=== PATIENT | female | born 1970 | race Caucasian/White ===

== ENCOUNTER 2016-07-20 09:00 | Inpatient (IN) | payer BC ==
--- NOTE | ~2016-07-20 | DS ---
Unit #: [id number] #: [id number] Patient: ILYA TAI [id number] [address] [place], [place] [address] [id number] I MR#: [id number] NAME: ILYA TAI ROOM: 218 Age: 45 Sex: F Admission Date: 07/20/2016 : 1970 Discharge Date: 07/24/2016 Attending Physician: Jerry Mendiola M.D. Primary Care Physician: Jerry Mendiola M.D. DISCHARGE SUMMARY PRINCIPAL DISCHARGE DIAGNOSES 1. Profound iron deficiency anemia. 2. Normal endoscopy, upper and lower. 3. Hypoglycemia. 4. Status post gastric bypass. 5. Migraine headaches. 6. Major depressive disorder. 7. Generalized anxiety disorder. 8. Fibromyalgia syndrome. 9. Tobacco use. 10. History of ulcerative colitis. PROCEDURES PERFORMED 1. Transfusion of two units of packed red blood cells 07/20/2016. 2. EGD 07/23/2016. 3. Colonoscopy 07/23/2016. [facility]ULT[facility]. REASON FOR HOSPITALIZATION The patient is a 45-year-old white female with a history of migraine headaches, major depressive disorder, generalized anxiety disorder, ulcerative colitis, fibromyalgia syndrome, tobacco use, gastric bypass, seen for routine followup in the office on 07/19/2016. Routine labs were sent. Her hemoglobin was found to be 6.4 with a low MCV and MCH and she was directly admitted for transfusion and further evaluation. HOSPITAL COURSE The patient was admitted to medical surgical bed. Bilateral SCDs for DVT prophylaxis started. Repeat CBC sent with iron studies. Her B12 had been checked in the office and was normal. Stool for occult blood was ordered. LSA was asked to see her for endoscopy. She became somewhat lethargic on the night of admission. Ammonia level was checked. Drug screen was sent. She was found to be hypoglycemic and started on some IV fluids and resolved. Her blood sugar was normal thereafter. She received two units of packed red blood cells on the day of admission. Her hemoglobin on repeat here was 5.6. Iron studies were low. Folic acid was normal. Had difficulty prepping the patient for endoscopy, but eventually she was cleared and underwent upper and lower endoscopy on the that were completely normal. She was given IV iron while here. Stool for occult blood was negative times two. It appears that it is a malabsorption problem secondary to gastric bypass. Her last hemoglobin yesterday was 10.0 on 07/23/2016. Unit #: [id number] #: [id number] Patient: ILYA TAI DISCHARGE MEDICATIONS 1. She is being discharged home on ferrous gluconate 324 mg one p.o. b.i.d. q.p.c. with vitamin C 500 mg p.o. b.i.d. 2. She is to resume her home medications a. Fioricet 1 tablet t.i.d. p.r.n. headache. b. Lyrica 150 mg p.o. q.i.d. c. Topamax 100 mg b.i.d. Paxil 40 mg daily. d. Ativan 0.5 mg b.i.d. e. Potassium chloride 20 mEq b.i.d. FOLLOWUP She will follow up in the office in one week with a CBC. Dictated by... Jerry Mendiola M.D. JOHNATHAN/douglas TD: 07/24/2016 08:12 JOB #: [id number] DISCHARGE SUMMARY Page 1 of 1 X Jerry Mendiola MD X DISCHARGE SUMMARY
--- NOTE | ~2016-07-20 | CO ---
Unit #: [id number] #: [id number] Patient: ILYA TAI [id number] [address] [place], [place] [address] [id number] I MR#: [id number] NAME: ILYA TAI ROOM: 218 Age: 45 Sex: F Admission Date: 07/20/2016 : 1970 Attending Physician: Jerry Mendiola M.D. Primary Care Physician: Jerry Mendiola M.D. Consultation Date: 07/21/2016 CONSULTATION REPORT HISTORY OF PRESENT ILLNESS The patient is a 45-year-old white female with profound anemia, some mental status changes. She was brought in for transfusion. She feels better. We were asked to see her for upper and lower endoscopy. She has not seen any blood in her bowels. She has had no peritoneal signs or any evidence of an acute surgical abdomen. She has had a history of a gastric bypass, which certainly could account for possible anemia and she has also had a history of chronic ulcerative colitis; although, she says she has had no recent flare ups with any bouts of diarrhea, and again she has not seen any blood. One must rule out marginal ulceration, occult lesion in the colon versus colitis. This most likely is related to iron-deficiency anemia secondary to gastric bypass surgery. PLAN At this time, we would recommend both upper and lower endoscopy. Risks have been explained to the patient. She understands. Orders have been written. Dictated by... Lizeth Cortez/mell TD: 07/21/2016 06:30 JOB #: [id number] CONSULTATION REPORT Page 1 of 1 X Michael Agosto MD X CONSULTATION REPORT
--- NOTE | ~2016-07-20 | A ---
[facility] Nutrition Therapy DATE: 07/22/16 Patient: ILYA TAI Physician: ADRIÁN Address: [address] [place] [address] Room/Bed: [address] [place] [address], Zip: [place] [address] Admit Date: 07/20/16 Date of : 74 Height: 4 11 Weight: 112 [id number] NUTRITIONAL ASSESSMENT: REASON: 3 NUTRITION RISK PT RE: WEIGHT LOSS PT IS 45 Y.O. FEMALE ADMITTED FOR ANEMIA PMH: HTN, ANXIETY, DEPRESSION, ULCERATIVE COLITIS, FIBROMYALAGIA, CVA, HX OF GASTRIC BYPASS, CHOLY Anthropometrics: 4'11" (PER PT), WT: 112# (51 KG), BMI: 22.6, 114%IBW Labs: GLU: 67, CA+:7.9 Meds: ZOFRAN, PROTONIX, NACL, D5% I/O & Bowel function: 1860/1207, 3 BMs NOTED Skin Integrity: NO KNOWN SKIN ISSUES Estimated Nutrition Needs: INCREASED NUTRIENT NEEDS 2' CURRENT CONDITION, WEIGHT LOSS NOTED, DECREASED PO INTAKE AND APPETITE Assessment: CHART REVIEWED AND EVENTS NOTED. PT SEEN FOR NUTRITION RISK PT RE: WEIGHT LOSS. PT WAS UNDER HER COVERS WHEN SHE SPOKE TO RD. PT REPORTED FAIR PO INTAKE 2' DECREASED APPETITE PAST SEVERAL DAYS. PT C/O N/V/D PAST SEVERAL DAYS WELL. PT ADDS HER APPETITE "COMES AND GOES". PT REPORTS WEIGHT LOSS BUT UNABLE TO IDENTIFY AMOUNT AND TIME FRAME. PER [employer], PT WEIGHED ~135-145# BACK IN 2011. OF NOTE, PT CURRENTLY NPO 2' PROCEDURE (EGD & COLONOSCOPY). THIS RD ENCOURAGED SLOW GRADUAL PO INTAKE ONCE DIET ADVANCES, PT AGREED. RD ALSO LEFT WRITTEN GASTRIC SURGERY NUTRITION THERAPY DIET EDUCATION AT BEDSIDE. PT NOT APPROPRIATE FOR DIET EDUCATION AT THIS TIME. RD TO FOLLOW. Dx: INADEQUATE PROTEIN-ENERGY INTAKE R/T DECREASED APPETITE, CURRENT CONDITION AEB PT REPORT ABOVE. ?WEIGHT LOSS NOTED IN UNKNOWN AMOUNT OF TIME. Intervention: 1. NPO 2. WRITTEN DIET EDUCATION LEFT AT BEDSIDE Monitoring, Evaluation and Goals: 1. ORAL INTAKE; ADVANCE DIET AND TOLERATE W/NO C/O N/V/D (PO>50%) 2. WEIGHTS; PREVENT FURTHER WEIGHT LOSS 3. GI; PROMOTE REGULAR GI FUNCTION 4. LABS; WNL [facility] Nutrition Therapy DATE: 07/22/16 Patient: ILYA TAI Physician: ADRIÁN Address: [address] [place] [address] Room/Bed: [address] [place] [address], Zip: [place] [address] Admit Date: 07/20/16 Date of : [birth year] Height: 4 11 Weight: 112 [id number] MONITOR: -DIET ADVANCEMENT -PO INTAKE/APPETITE -WEIGHTS Recommendations: 1. ONCE MEDICALLY FEASIBLE, BEGIN WITH CLEARS AND ADVANCE DIET TOLERATED TO LOW FIBER + 6 SMALL MEALS 2. ORDER APPROPRIATE SUPPLEMENTS SUCH ENSURE SHAKES OR PUDDING OR ENSURE CLEAR BID FOR ADDITIONAL PROTEIN AND KCAL 3. ENCOURAGE SLOW GRADUAL PO INTAKE 4. CONSIDER ADDING MVI W/MINERAL DAILY TO PT'S CURRENT MEDICATION REGIMEN RD WILL F/U PER PROTOCOL PT IS MILD/MODERATELY COMPROMISED Respectfully, JORGE MOFFETT MS, RD, LD [employer] [facility] [place] [facility] cc: client file
--- NOTE | ~2016-07-20 | OR ---
Unit #: [id number] #: [id number] Patient: ILYA TAI [id number] [address] [place], [place] [address] [id number] I MR#: [id number] NAME: ILYA TAI ROOM: 218 Date of Procedure: 07/23/2016 Admission Date: 07/20/2016 Surgeon: Calvin Harper M.D. : 1970 Attending Physician: Jerry Mendiola M.D. Primary Care Physician: Jerry Mendiola M.D. OPERATIVE REPORT PRIMARY CARE PHYSICIAN Jerry Mendiola M.D. PREOPERATIVE DIAGNOSIS Iron-deficiency anemia. POSTOPERATIVE DIAGNOSIS Iron-deficiency anemia. PROCEDURES PERFORMED Esophagogastroduodenoscopy and colonoscopy. ANESTHESIA Monitored anesthesia. INDICATIONS FOR PROCEDURE Ms. Mueller is a 45-year-old female, who presented to the hospital with symptomatic iron deficiency anemia, but no evidence of any clinical blood loss. She has a history of gastric bypass in the remote past. DESCRIPTION OF PROCEDURE The patient was transported from her hospital room to the endoscopy suite and after appropriate monitoring and positioning, a bite block was placed and she was sedated by the nurse snack bar cook. The endoscope was passed through the oral cavity into the esophagus. Under direct vision, I passed through the esophagus, the GE junction was well demarcated. There was no esophagitis, hiatal hernia, or Goodson mucosa. I easily passed into the gastric remnant and it was very small. I easily passed through a widely patent anastomosis into the jejunum. No abnormalities on visualization of the upper GI tract were noted. The GE junction was at 30 cm and she had approximately a 5 cm gastric pouch. The esophagus and larynx were normal in retrograde visualization. After completion of the upper scope, the patient was repositioned. On rectal examination, there was no local anorectal pathology and digital exam was normal. Colonoscope was passed through the anal verge throughout the extent of the colon to the cecum, where the appendiceal orifice and ileocecal valve were photodocumented. On careful antegrade and retrograde visualization, no abnormalities were noted throughout the colon. The patient tolerated the procedure well and transported to recovery in stable condition. The patient will be readmitted to her hospital room, where her primary care physician will continue to replete her iron with IV iron sucrose. Unit #: [id number] #: [id number] Patient: ILYA TAI Dictated by... Lizeth Tao/mell TD: 07/23/2016 23:10 JOB #: [id number] OPERATIVE REPORT Page 1 of 1 X Calvin Harper MD PROCEDURE OPERATIVE NOTE
--- NOTE | ~2016-07-20 | HP ---
Unit #: [id number] #: [id number] Patient: ILYA TAI [id number] [address] [place], [place] [address] [id number] I MR#: [id number] NAME: ILYA TAI ROOM: 218 Age: 45 Sex: F Admission Date: 07/20/2016 : 1970 Attending Physician: Jerry Mendiola M.D. Primary Care Physician: Jerry Mendiola M.D. HISTORY AND PHYSICAL HISTORY OF PRESENT ILLNESS This is a 45-year-old, white female with history of hypertension, chronic insomnia, tobacco use, depression, anxiety disorder, ulcerative colitis fibromyalgia syndrome, previous gastric bypass and cholecystectomy. Presented to the office on 07/19/16 for routine followup. At that time, she had no particular complaints. Was here with her , which is unusual, who noted that she has been having some hallucinations at home off and on without any other associated symptoms. She had refills and routine labs sent. Her lab returned this morning before we had gotten the MRI of her brain, which was to be followed with an EEG if it was normal. In any case, her labs came back this morning showing a hemoglobin of 6.4 with a low MCV and MCH and an elevated RDW consistent with microcytic anemia and she is being admitted for transfusion and further evaluation. She has had a prior colonoscopy, but I do not have the report. She is a relatively new patient to the office. She sees Dr. Henry on an outpatient basis, but he does not admit or come to our hospital. In any case, she is being admitted for further evaluation and transfusion. ALLERGIES She has stated allergies to amoxicillin, sulfa drugs, Cipro, and Levaquin. MEDICATIONS Her meds prior to admission: 1. Trazodone 100 mg p.o. q.h.s. 2. Metoprolol 50 mg b.i.d. 3. Topamax 200 mg b.i.d. 4. Ativan 1 mg t.i.d. p.r.n. 5. Lyrica 150 mg 4 times daily. 6. Calcium citrate 600 mg b.i.d. 7. Cymbalta 60 mg daily. 8. Lomotil 1 q.i.d. p.r.n. 9. Fioricet with codeine 1 q.i.d. p.r.n. PAST SURGICAL HISTORY Gastric bypass in 2001, breast reduction in 2004, and cholecystectomy. PAST MEDICAL HISTORY Chronic migraine headaches, tobacco use, major depressive disorder, generalized anxiety disorder, fibromyalgia syndrome, and ulcerative colitis. SOCIAL HISTORY She is and smokes 1/2-1 pack of cigarettes daily. No alcohol or street drug use. Unit #: [id number] #: [id number] Patient: ILYA TAI FAMILY HISTORY Mother is alive with type 2 diabetes mellitus. Father is alive with coronary artery disease. She has no siblings. PHYSICAL EXAMINATION HEENT: Unremarkable, except for pale mucous membranes. VITAL SIGNS: Blood pressure 120/80 in the right arm, height 58 1/2 inches, weight 112 pounds, BMI 24, room air O2 sat 98%, pulse 118, and temperature 99.2. NECK: Supple without JVD, bruits, adenopathy, or thyromegaly. CHEST: Clear to auscultation. HEART: Regular and tachycardic without (1) gallop or murmur appreciated. ABDOMEN: Not examined yesterday, but will be as soon as she is in the hospital. EXTREMITIES: Showed no clubbing, cyanosis, or edema. GENITOURINARY: Deferred. RECTAL: Deferred. NEUROLOGIC: Grossly intact. DIAGNOSTIC STUDIES LABORATORY: As mentioned above, her white count is 7.3, hemoglobin 6.4, MCV 66, MCH 17.8, MCHC 26.8, RDW 22.2, and platelets 797,000. CMP was normal, except for creatinine was low at 0.55, chloride 107, calcium was 8.4, total protein 5.5, and albumin 3.4. Lipid profile normal. Hepatitis C antibody was negative. B12 was 245. IMPRESSION 1. Microcytic anemia, likely iron deficient. Whether it is an absorption problem from her prior gastric bypass or she has some intestinal bleeding remains to be seen. 2. Chronic migraine headaches. 3. Fibromyalgia syndrome. 4. Ulcerative colitis. 5. Generalized anxiety disorder. 6. Major depressive disorder. 7. 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 8. Tobacco use. PLAN Admit. Check iron studies and folic acid. Consult surgery for endoscopy. Transfusion 2 units. Recheck CBC. Further evaluation pending results of the above. Dictated by Lizeth Bautista/cooper TD: 07/20/2016 13:21 JOB #: [id number] Unit #: [id number] #: [id number] Patient: ILYA TAI HISTORY AND PHYSICAL Page 1 of 1 X Jerry Mendiola MD X HISTORY AND PHYSICAL
[~2016-07-20 09:00] MED LIST: AMITRYPTYLINE PO; ATIVAN0.5 M1 PO; B12 HEALTH1000 MCG/1 PO; BENTYL20 MG PO; CALCIUM + VITAM1 TAB PO; CALCIUM 500 +1 EAC2; CELEXA PO; DICYCLOMINE HCL20 MG PO; FIORICET1 TAB PO; FLAGYL PO; HYDROCODON-ACE1 EAC1 PO; KCL PO; LIBRAX CAPSULE1 CA1 PO; LIBRAX1 CAP 5/2. PO; LOPERAMIDE HCL2 M1 PO; LORTAB 10-5001 EACH PO; LYRICA25 MG PO; MAGNESIUM100 MG PO; PAXIL40 MG PO; PEPCID PO; POTASSIUM1 UDCAP.SA PO; QUESTRAN PACK4 G/PK1 PO; SOD BICARBONATE PO; TOPAMAX PO; TOPAMAX200 MG PO; TOPROL XL50 MG PO; TRAMADOL HCL50 M2 PO
[2016-07-20 16:33] LABS: BASOPHIL# 0.1 X10e3 (0-0.3); BASOPHIL% 2.3 % (0-2.5); EOSINOPHIL# 0.1 X10e3 (0-0.7); EOSINOPHIL% 1.5 % (0.0-7.0); LYMPHOCYTE# 2.2 X10e3 (1.0-3.5); LYMPHOCYTE% 46.6 % (17.0-45.0); MEAN CELL VOLUME 65.2 FL (83-96); MEAN CORPUSCULAR HEMOGLOBIN 18.1 PG (28-34); MEAN CORPUSCULAR HGB CONC 27.8 g/dL (30-36); MEAN PLATELET VOLUME 8.6 FL (6.5-11.5); MONOCYTE# 0.3 X10e3 (0-1.0); MONOCYTE% 6.2 % (3.0-12.0); NEUTROPHIL# 2.1 X10e3 (1.5-7.1); NEUTROPHIL% 43.4 % (40-75); PLATELET COUNT 482 X10e3 (140-420); RED BLOOD COUNT 3.07 X10e (3.90-5.30); RED CELL DISTRIBUTION WIDTH 22.2 % (11.0-15.5); WHITE BLOOD COUNT 4.8 X10e3 (4.0-10.5)
[2016-07-20 16:38] LABS: DIFF IND YES; HEMOGLOBIN 5.6 gm/dL (12.0-16.0)
[2016-07-20 16:54] LABS: IRON SERUM 5 ug/dL (28-170); TOTAL IRON BINDING CAPACITY 423 ug/dL (269-535); TRANSFERRIN 302 mg/dL (192-382); TRANSFERRIN SATURATION 1 % (20-50)
[2016-07-20 17:01] LABS: PLATELET ESTIMATE NORMAL (NORMAL)
[2016-07-20 17:02] LABS: POIKILOCYTOSIS MOD
[2016-07-20 17:03] LABS: TARGET CELLS SL
[2016-07-20 17:17] LABS: FOLATE (FOLIC ACID) 7.1 ng/mL (>5.8)
[2016-07-20 20:29] LABS: BUN/CREATININE RATIO 36.66; CALCIUM SERUM 7.9 mg/dL (8.4-10.2); CREATININE SERUM 0.6 mg/dL (0.6-1.4); GLOM FILT RATE Estimated 111.6 mL/min (>60); POTASSIUM 3.9 mmol/L (3.5-5.1)
[2016-07-21 05:04] LABS: BASOPHIL# 0.1 X10e3 (0-0.3); BASOPHIL% 1.6 % (0-2.5); EOSINOPHIL# 0.1 X10e3 (0-0.7); EOSINOPHIL% 1.7 % (0.0-7.0); HEMATOCRIT 30.2 % (35.0-45.0); HEMOGLOBIN 8.9 gm/dL (12.0-16.0); LYMPHOCYTE# 3.3 X10e3 (1.0-3.5); LYMPHOCYTE% 43.7 % (17.0-45.0); MEAN CELL VOLUME 71.2 FL (83-96); MEAN CORPUSCULAR HEMOGLOBIN 20.9 PG (28-34); MEAN CORPUSCULAR HGB CONC 29.4 g/dL (30-36); MEAN PLATELET VOLUME 8.8 FL (6.5-11.5); MONOCYTE# 0.4 X10e3 (0-1.0); MONOCYTE% 5.9 % (3.0-12.0); NEUTROPHIL# 3.5 X10e3 (1.5-7.1); NEUTROPHIL% 47.1 % (40-75); PLATELET COUNT 479 X10e3 (140-420); RED BLOOD COUNT 4.24 X10e (3.90-5.30); RED CELL DISTRIBUTION WIDTH 26.2 % (11.0-15.5); WHITE BLOOD COUNT 7.5 X10e3 (4.0-10.5)
[2016-07-21 05:06] LABS: DIFF IND NO
[2016-07-21 10:31] LABS: AMPHETAMINE NEG (NEG); BARBITURATES POS (NEG); BENZODIAZEPINES NEG (NEG); COCAINE NEG (NEG); MARIJUANA NEG (NEG); OPIATES POS (NEG); TRICYCLIC ANTIDEPRESSANTS NEG (NEG); U METHADONE NEG (NEG)
[2016-07-22 06:08] LABS: HEMATOCRIT 30.3 % (35.0-45.0); HEMOGLOBIN 9.1 gm/dL (12.0-16.0); MEAN CELL VOLUME 69.2 FL (83-96); MEAN CORPUSCULAR HEMOGLOBIN 20.8 PG (28-34); MEAN CORPUSCULAR HGB CONC 30.1 g/dL (30-36); MEAN PLATELET VOLUME 8.8 FL (6.5-11.5); RED BLOOD COUNT 4.39 X10e (3.90-5.30); RED CELL DISTRIBUTION WIDTH 26.4 % (11.0-15.5); WHITE BLOOD COUNT 5.4 X10e3 (4.0-10.5)
[2016-07-23 04:53] LABS: HEMATOCRIT 33.3 % (35.0-45.0); MEAN PLATELET VOLUME 8.8 FL (6.5-11.5); RED BLOOD COUNT 4.76 X10e (3.90-5.30); RED CELL DISTRIBUTION WIDTH 27.1 % (11.0-15.5); WHITE BLOOD COUNT 5.8 X10e3 (4.0-10.5)
[2016-07-24] MEDS ORDERED: FERROUS SULFAT324 MG PO (07:12)
[2016-07-24] MEDS ORDERED: VITAMIN C PO (07:13)
== END 2016-07-24 08:11 | disposition home or self-care (01) | DRG 812 ==
LOC: C2A 09:00
PROVIDERS: Internal Medicine; Specialist
PROC: 30233N1 Transfusion of Nonautologous Red Blood Cells into Peripheral Vein, Percutaneous Approach (ICD-10-PCS; 2016-07-20)
PROC: 0DJ08ZZ Inspection of Upper Intestinal Tract, Via Natural or Artificial Opening Endoscopic (ICD-10-PCS; principal; 2016-07-23 15:30)
PROC: 0DJD8ZZ Inspection of Lower Intestinal Tract, Via Natural or Artificial Opening Endoscopic (ICD-10-PCS; 2016-07-23 15:30)
DX: D50.9 Iron deficiency anemia, unspecified (principal); I10 Essential (primary) hypertension; F32.9 Major depressive disorder, single episode, unspecified; M79.7 Fibromyalgia; Z90.49 Acquired absence of other specified parts of digestive tract; Z98.84 Bariatric surgery status; F51.04 Psychophysiologic insomnia; F17.210 Nicotine dependence, cigarettes, uncomplicated; Z88.2 Allergy status to sulfonamides; Z88.0 Allergy status to penicillin; F41.1 Generalized anxiety disorder; G43.909 Migraine, unspecified, not intractable, without status migrainosus; Z86.73 Personal history of transient ischemic attack (TIA), and cerebral infarction without residual deficits; E16.2 Hypoglycemia, unspecified
CPT/HCPCS: 80048; 80307; 82140; 82274; 82728; 82746; 82947; 83540; 83550; 84703; 85025; 85027; 86850; 86900; 86901; 86923; C9113; J2250; J2310; J2405; J2916; J3010; P9016